=== PATIENT | female | born 2000 | race Caucasian/White ===

== ENCOUNTER 2021-09-14 00:25 | Emergency (ER) | payer BC, SELFPAY ==
[2021-09-14 00:49] VITALS: BP 128/86; PULSE 78; RESP 18; TEMP 36.9; O2SAT 100
[2021-09-14 01:42] LABS: Basophils Absolute Auto 0.1 K/mm3 (0.0-0.1); Basophils Percent Auto 0.6 % (0.2-1.2); Eosinophils Absolute Auto 0.2 K/mm3 (0-0.3); Eosinophils Percent Auto 1.2 % (0-4.4); Hematocrit 37.1 % (37.0-47.0); Hemoglobin 12.5 g/dL (12.0-15.0); Immature Granulocyte Absolute 0.11 K/mm3 (0.00-0.031); Immature Granulocyte Percent A 0.7 % (0-0.5); Lymphocytes Absolute Auto 2.24 K/mm3 (0.9-3.2); Lymphocytes Percent Auto 13.9 % (18.3-44.2); Mean Corpuscular HGB Conc 33.7 g/dl (32-36); Mean Corpuscular Hemoglobin 33.2 pg (26-34); Mean Corpuscular Volume 98.4 fl (80-100); Mean Platelet Volume 9.4 fl (7.4-10.4); Monocytes Absolute Auto 0.9 K/mm3 (0.1-0.6); Monocytes Percent Auto 5.8 % (2.6-8.5); Neutrophils Absolute Auto 12.5 K/mm3 (1.3-6.7); Neutrophils Percent Auto 77.8 % (45.5-73.1); Platelet Count Result 277 k/mm3 (150-375); Red Blood Count 3.77 M/mm3 (4.2-5.4); Red Cell Distribution Width 11.9 % (11.5-14.5); White Blood Count 16.1 K/mm3 (4.5-10.0)
--- NOTE | 2021-09-14 01:42 | ED.PREGNANCY ---
HPI - General Chief complaint: Vaginal Bleeding <Fidel Barth MD - Last Filed: 09/14/21 04:09> Stated complaint: abd pain , pelvic pain, vag bleeding, <Fidel Barth MD - Last Filed: 09/14/21 04:09> Time Seen by Provider: 09/14/21 01:27 <Fidel Barth MD - Last Filed: 09/14/21 04:09> History of Present Illness HPI Narrative: Patient is a 20-year-old female , at 8 weeks age of gestation, complaining of vaginal bleeding, described as spotting accompanied by mild pelvic cramping started 4 hours prior to arrival. <Fidel Barth MD - Last Filed: 09/14/21 04:09> Related Data Allergies/Adverse reactions: Allergies Allergy/AdvReac Type Severity Reaction Status Date / Time Sulfa (Sulfonamide Allergy Unknown / Verified 09/14/21 02:03 Antibiotics) <Fidel Barth MD - Last Filed: 09/14/21 04:09> Review of Systems Review of Systems: All systems reviewed & are unremarkable except as noted in HPI and below <Fidel Barth MD - Last Filed: 09/14/21 04:09> Constitutional: Constitutional: Denies body ache(s), Denies chills, Denies excessive sweating, Denies fatigue, Denies fever(s), Denies headache(s), Denies lethargy, Denies malaise, Denies weakness and Denies weight loss <Fidel Barth MD - Last Filed: 09/14/21 04:09> Eyes: Eyes: Denies blurry vision, Denies change in vision and Denies loss of vision <Fidel Barth MD - Last Filed: 09/14/21 04:09> ENT: Denies dizziness, Denies ear discharge, Denies headache(s), Denies lip swelling, Denies epistaxis, Denies nasal congestion, Denies neck pain, Denies throat swelling and Denies tongue swelling <Fidel Barth MD - Last Filed: 09/14/21 04:09> Cardiovascular: Cardiovascular: Denies chest pain, Denies chest pain at rest, Denies chest pain with activity, Denies diaphoresis, Denies rapid heart rate, Denies edema, Denies irregular heart rhythm, Denies lightheadedness, Denies palpitations, Denies dyspnea and Denies dyspnea on exertion <Fidel Barth MD - Last Filed: 09/14/21 04:09> Respiratory: Respiratory: Denies chest congestion, Denies cough, Denies hemoptysis, Denies dyspnea and Denies dyspnea on exertion <Fidel Barth MD - Last Filed: 09/14/21 04:09> Gastrointestinal: Gastrointestinal: Denies abdominal pain, Denies melena, Denies hematochezia, Denies diarrhea, Denies nausea, Denies vomiting and Denies hematemesis <Fidel Barth MD - Last Filed: 09/14/21 04:09> Musculoskeletal: Musculoskeletal: Denies abnormal gait, Denies deformity, Denies joint swelling, Denies limited range of motion, Denies neck pain and Denies numbness <Fidel Barth MD - Last Filed: 09/14/21 04:09> Neurologic: Denies Abnormal speech present, Denies abnormal gait, Denies confusion, Denies dizziness, Denies headache(s), Denies focal weakness, Denies loss of vision, Denies numbness, Denies Other visual disturbances, Denies Sensory deficit (Neuro) and Denies weakness <Fidel Barth MD - Last Filed: 09/14/21 04:09> Psychiatric: Psychiatric: Denies confusion, Denies depression, Denies auditory hallucinations, Denies homicidal ideation and Denies suicidal ideation <Fidel Barth MD - Last Filed: 09/14/21 04:09> Endocrine: Endocrine: Denies cold intolerance, Denies excessive sweating, Denies fatigue, Denies heat intolerance and Denies palpitations <Fidel Barth MD - Last Filed: 09/14/21 04:09> Hematologic/Lymphatic: Hematologic/Lymphatic: Denies easy bleeding and Denies easy bruising <Fidel Barth MD - Last Filed: 09/14/21 04:09> Allergic/Immunologic: Allergic/Immunologic: Denies lip swelling, Denies throat swelling and Denies tongue swelling <Fidel Barth MD - Last Filed: 09/14/21 04:09> [facility] Family History Family History: Family History Grandparent Family history of cardiovascular disease <Fidel Garland
[2021-09-14 01:46] LABS: Alanine Aminotransferase 9 U/L (6-35); Albumin Level 4.8 g/dL (3.5-5.1); Alkaline Phosphatase 45 U/L (38-126); Anion Gap 9 mmol/L (8-16); Aspartate Amino Transferase 24 U/L (14-36); Bilirubin,Total 0.2 mg/dL (0.2-1.3); Blood Urea Nitrogen 9 mg/dL (7-17); Carbon Dioxide 22 mmol/L (22-30); Chloride 102 mmol/L (98-107); Estimated CRCL calculation 78 ml/min; Estimated Glomerular Filt Rate > 60; Glucose 95 mg/dL (65-110); Potassium 3.4 mmol/L (3.4-5.0); Sodium 133 mmol/L (137-145)
[2021-09-14] MEDS: SODIUM CHLORIDE 0.9% IV 1,000 ML 999 ML IV CONT (02:07)
[2021-09-14] MEDS: ACETAMINOPHEN 325 MG TABLET 650 MG PO (03:11)
[2021-09-14 03:15] VITALS: BP 113/64; PULSE 63; RESP 18; O2SAT 100
[2021-09-14 04:13] LABS: Appearance Urine Clear (Clear); Bilirubin Urine Negative (Negative); Blood Urine 3+ (Negative); Color Urine Yellow (Yellow); Glucose Urine UA Negative (Negative); Ketones Urine 4+ mg/dL (Negative); Leukocyte Esterase Ur Negative LEU/UL (Negative); Nitrate Urine Negative (Negative); Protein Urine Negative (Negative); Urobilinogen Urine 0.2 mg/dL (<2.0); pH Urine 6.5 (5.0-9.0)
[2021-09-14 04:24] LABS: RBC Urine 0-2 /hpf (0-2); Squamous Epithelial Cell Urine Rare /hpf (Few); WBC Urine 0-3 /hpf
[2021-09-14 04:33] VITALS: BP 115/67; PULSE 68; RESP 18; O2SAT 98
[2021-09-14 04:55] LABS: Add Urine Microscopic? YES
== END 2021-09-14 04:33 | disposition home or self-care (01) ==
PROVIDERS: Emergency Provider Emergency Medicine; PCP Family Medicine
DX: O20.0 Threatened abortion (principal); Z3A.08 8 weeks gestation of pregnancy
CPT/HCPCS: 36415; 80053; 81001; 84702; 85025; 85461; 96360; 99284; A9270; J7030

== ENCOUNTER 2021-09-15 16:34 | Emergency (ER) | payer BC, SELFPAY ==
--- NOTE | ~2021-09-15 | US_ITS ---
EXAMINATION: US OB <=14 wk fetus w TV DATE: 09/15/2021 18:30 INDICATION: Early . Bleeding and cramping. TECHNIQUE: Real-time transabdominal and transvaginal obstetric ultrasound. FINDINGS: No prior studies for comparison. The uterus measures 10.1 x 5.1 x 6.2 cm. There is an intrauterine gestational sac, with pole id entified. The crown rump length measures 0.91 cm, which correlates with a estimated gestational age of 6 weeks 6 days. heart tones are identified measuring 126 BPM. Small amount of free fluid i n the pelvis. There are small follicles in the right ovary. IMPRESSION: 1. SL IUP with an EGA of 6 weeks, 6 days (EDC by current ultrasound of 05/05/2022). Reviewed, dictated and finalized at location A. IMPRESSION: 1. SL IUP with an EGA of 6 weeks, 6 days (EDC by current ultrasound of ).
[2021-09-15 16:35] VITALS: BP 121/70; PULSE 98; RESP 18; TEMP 36.4; O2SAT 100
--- NOTE | 2021-09-15 17:18 | ED.PREGNANCY ---
HPI - General Chief complaint: Vaginal Bleeding Stated complaint: UTI, Lower ABD Cramps, 7 weeks Preg Time Seen by Provider: 09/15/21 17:10 Source: patient Mode of arrival: ambulatory Limitations: no limitations History of Present Illness HPI Narrative: This is a 20-year-old , about 7 weeks that presents to the emergency department for vaginal bleeding. She was evaluated by her OB yesterday and in the ER here for same. She was told she had a subchorionic hemorrhage. Reports she was told by her OB office if the bleeding became more bright red she should come in to be seen again, which prompted her to be reevaluated today. Associated with some pelvic cramping. Also reports she has had some dysuria. Denies fever or vomiting. Related Data Allergies Allergy/AdvReac Type Severity Reaction Status Date / Time Sulfa (Sulfonamide Allergy Unknown / Verified 09/14/21 02:03 Antibiotics) Review of Systems Review of Systems: CONSTITUTIONAL: Denies fever GASTROINTESTINAL: Reports abdominal pain. Denies nausea, vomiting GENITOURINARY: Reports dysuria. Denies hematuria. All systems reviewed & are unremarkable except as noted in HPI and below PMFSH Past Medical History Medical History (Updated 09/15/21 @ 19:31 by Hiwot Francisco PA-C) No active medical problems Family History Family History Grandparent Family history of cardiovascular disease Social History Social History (Updated 09/15/21 @ 17:21 by Hiwot Francisco PA-C) Smoking status: Current every day smoker Tobacco type: e-cigarettes/vaping Exam Narrative: GENERAL: Well-appearing, well-nourished, and in no acute distress. HEAD: Normocephalic, atraumatic. EYES: EOMI. CHEST: Clear to auscultation. No respiratory distress. No wheezes rales or rhonchi HEART: Regular rate and rhythm. No murmur heard. Normal peripheral pulses. ABDOMEN: Soft, nontender, nondistended, normal active bowel sounds. EXTREMITIES: Normal range of motion. No edema. SKIN: Warm, dry, no rash. NEURO: No focal deficits. Alert and oriented x3. PSYCH: Normal mood and affect PELVIC: Normal-appearing cervix, closed. Small amount of bright red blood in the vaginal vault Course Consultations Consultation #1: Spoke with Dr. James about patient and workup who will follow up in clinic Date: 09/15/21 Vital Signs Vital signs: Vital Signs Temperature 97.6 F 09/15/21 16:35 Pulse Rate 98 09/15/21 16:35 Respiratory Rate 18 09/15/21 16:35 Blood Pressure 121/70 09/15/21 16:35 Pulse Oximetry 100 09/15/21 16:35 Oxygen Delivery Room Air 09/15/21 16:35 Temperature 97.6 F 09/15/21 16:35 Pulse Rate 98 09/15/21 16:35 Respiratory Rate 18 09/15/21 16:35 Blood Pressure 121/70 09/15/21 16:35 Pulse Oximetry 100 09/15/21 16:35 Oxygen Delivery Room Air 09/15/21 16:35 MDM - OB/Uterine Contractions MDM Narrative Medical decision making narrative: Patient presents to the ER for vaginal bleeding, 7 weeks . Was evaluated last night, but returned as her bleeding had worsened. She is afebrile and nontoxic appearing. CBC with mild leukocytosis. Hemoglobin is normal. Metabolic panel without concerning findings. UA does show some WBCs. This will go for a culture. Patient is experiencing some urinary discomfort so will be started on Macrobid. Patient is A+. US shows SL IUP. No concerning amount of bleeding noted on exam. Spoke with Dr. James about patient and workup who will follow up in clinic. Patient is stable and felt appropriate for further outpatient evaluation. She was given warnings to return to the ER Lab Data Attestation: I reviewed the patient's lab results. Result diagrams: 09/15/21 17:25 Labs: Lab Results 09/15/21 09/15/21 09/15/21 Range/Units 17:25 17:25 17:25 WBC 12.6 H (4.5-10.0) K/mm3 RBC 3.62 L (4.2-5.4) M/mm3 Hgb 12.0 (12.0-15.0)
[2021-09-15] MEDS: SODIUM CHLORIDE 0.9% IV 1,000 ML 999 ML IV CONT (17:24)
[2021-09-15 17:32] LABS: Basophils Absolute Auto 0.1 K/mm3 (0.0-0.1); Basophils Percent Auto 0.5 % (0.2-1.2); Eosinophils Absolute Auto 0.1 K/mm3 (0-0.3); Eosinophils Percent Auto 0.7 % (0-4.4); Hematocrit 35.6 % (37.0-47.0); Immature Granulocyte Absolute 0.08 K/mm3 (0.00-0.031); Immature Granulocyte Percent A 0.6 % (0-0.5); Lymphocytes Absolute Auto 1.81 K/mm3 (0.9-3.2); Lymphocytes Percent Auto 14.4 % (18.3-44.2); Mean Corpuscular HGB Conc 33.7 g/dl (32-36); Mean Corpuscular Hemoglobin 33.1 pg (26-34); Mean Corpuscular Volume 98.3 fl (80-100); Mean Platelet Volume 9.6 fl (7.4-10.4); Monocytes Absolute Auto 0.8 K/mm3 (0.1-0.6); Monocytes Percent Auto 6.1 % (2.6-8.5); Neutrophils Absolute Auto 9.7 K/mm3 (1.3-6.7); Neutrophils Percent Auto 77.7 % (45.5-73.1); Platelet Count Result 275 k/mm3 (150-375); Red Blood Count 3.62 M/mm3 (4.2-5.4); Red Cell Distribution Width 11.9 % (11.5-14.5); White Blood Count 12.6 K/mm3 (4.5-10.0)
[2021-09-15 17:59] LABS: Appearance Urine Cloudy (Clear); Color Urine Red (Yellow)
[2021-09-15 18:01] LABS: Glucose Urine UA Negative (Negative); Protein Urine 2+ mg/dL (Negative); Specific Grav Ur 1.025 (1.001-1.035); pH Urine 5.5 (5.0-9.0)
[2021-09-15 18:02] LABS: Blood Urine 4+ (Negative); Ketones Urine 2+ mg/dL (Negative)
[2021-09-15 18:03] LABS: Add Urine Microscopic? YES; Bilirubin Urine 2+ (Negative); Leukocyte Esterase Ur Negative LEU/UL (Negative); Nitrate Urine Negative (Negative)
[2021-09-15 18:05] LABS: Bacteria Urine Trace /hpf; Mucus Urine Few /lpf; Squamous Epithelial Cell Urine Many /hpf (Few); WBC Clumps Urine Present /HPF
[2021-09-15 19:27] VITALS: BP 127/78; PULSE 78; RESP 18; O2SAT 99
== END 2021-09-15 19:42 | disposition home or self-care (01) ==
PROVIDERS: Physician Assistant; Emergency Provider Emergency Medicine; PCP Family Medicine
DX: O46.91 Antepartum hemorrhage, unspecified, first trimester (principal); Z3A.01 Less than 8 weeks gestation of pregnancy
CPT/HCPCS: 36415; 76801; 76817; 81001; 84702; 85025; 85461; 87086; 87088; 96360; 99284; J7030

== ENCOUNTER 2022-04-25 01:21 | Inpatient (IN) | payer BC, MEDICAID, SELFPAY ==
[2022-04-25] VITALS (140 sets, daily range): BP systolic 102–148; BP diastolic 41–124; PULSE 71–128; RESP 16–18; TEMP 36.4–37.1; O2SAT 92–100; BMI 26.9
--- NOTE | 2022-04-25 05:29 | LDADM ---
This patient, Dunia Shelby, was admitted to Labor/Delivery/Recovery 105 on 04/25/22 at 01:21. Plans for labor, pain management and were discussed with patient. Patient/family oriented to hospital policies and general routines including ID bracelet, bed and alarms, visiting hours, pain management, procedures, bathroom and other care routines, personal items, smoking policy, room service/diet and guest tray routines, security routines, and visiting hours. Patient/Family are encouraged to report perceived risks to care and to ask questions if they do not understand what they are told or what they should do. See OBIX for further documentation.
[2022-04-25 05:44] LABS: Basophils Percent Auto 0.3 % (0.2-1.2); Eosinophils Absolute Auto 0.1 K/mm3 (0-0.3); Hemoglobin 11.2 g/dL (12.0-15.0); Immature Granulocyte Percent A 0.8 % (0-0.5); Lymphocytes Absolute Auto 2.31 K/mm3 (0.9-3.2); Lymphocytes Percent Auto 18.5 % (18.3-44.2); Mean Corpuscular HGB Conc 32.9 g/dl (32-36); Mean Corpuscular Hemoglobin 32.8 pg (26-34); Mean Corpuscular Volume 99.7 fl (80-100); Mean Platelet Volume 10.9 fl (7.4-10.4); Monocytes Absolute Auto 1.1 K/mm3 (0.1-0.6); Monocytes Percent Auto 8.4 % (2.6-8.5); Neutrophils Absolute Auto 8.9 K/mm3 (1.3-6.7); Platelet Count Result 233 k/mm3 (150-375); Red Blood Count 3.41 M/mm3 (4.2-5.4); Red Cell Distribution Width 14.2 % (11.5-14.5); White Blood Count 12.5 K/mm3 (4.5-10.0)
--- NOTE | 2022-04-25 06:00 | WPDANESEPP ---
Anes - Eval Pre Procedure Procedure: Labor epidural Date/Time: 04/25/22 06:00 Surgeon: Erika Preop Diagnosis: Abd pain with contractions Pre Op Diagnosis: Contractions Patient Data Age: 21 Gender: F Height: 1.6 m Weight: 69.1 kg Last Vital Signs Pulse 78 04/25/22 05:31 BP 130/76 04/25/22 05:31 O2 Del Method Room Air 04/25/22 05:25 Allergies Allergy/AdvReac Type Severity Reaction Status Date / Time Sulfa (Sulfonamide Allergy Unknown / Verified 04/25/22 04:39 Antibiotics) Home Medications Medication Instructions Recorded Confirmed Type ferrous sulfate 140 mg (45 mg 140 mg PO BID 04/03/22 04/25/22 History iron) tablet,extended release prenat.vits,estefany,[id number]-wimft 1 tablet PO DAILY 04/03/22 04/25/22 History Laboratory Tests 04/25/22 04/25/22 04:50 04:50 WBC 12.5 K/mm3 H K/mm3 (4.5-10.0) RBC 3.41 M/mm3 L M/mm3 (4.2-5.4) Hgb 11.2 g/dL L g/dL (12.0-15.0) Hct 34.0 % L % (37.0-47.0) MCV 99.7 fl fl (80-100) MCH 32.8 pg pg (26-34) MCHC 32.9 g/dl g/dl (32-36) RDW 14.2 % % (11.5-14.5) Plt Count 233 k/mm3 k/mm3 (150-375) MPV 10.9 fl H fl (7.4-10.4) Immature Gran % (Auto) 0.8 % H % (0-0.5) Neut % (Auto) 71.0 % % (45.5-73.1) Lymph % (Auto) 18.5 % % (18.3-44.2) [place] % (Auto) 8.4 % % (2.6-8.5) Eos % (Auto) 1.0 % % (0-4.4) Baso % (Auto) 0.3 % % (0.2-1.2) Lymph # (Auto) 2.31 K/mm3 K/mm3 (0.9-3.2) [place] # (Auto) 1.1 K/mm3 H K/mm3 (0.1-0.6) Eos # (Auto) 0.1 K/mm3 K/mm3 (0-0.3) Baso # (Auto) 0.0 K/mm3 K/mm3 (0.0-0.1) Abs Immat Gran (auto) 0.10 K/mm3 H K/mm3 (0.00-0.031) Absolute Neuts (auto) 8.9 K/mm3 H K/mm3 (1.3-6.7) Absolute Nucleated RBC 0.0 K/mm3 K/mm3 (0.0-0.012) Nucleated RBC % 0.0 % % (0.0-0.2) RPR Pending Patient hx anesthesia problems: none Family hx anesthesia problems: none Results Review: All pre-operative results and documents have been reviewed as part of the pre-operative evaluation. [facility] Past Medical History Medical History Anxiety and depression No active medical problems Overweight (BMI 25.0-29.9) and not yet delivered Family History Family History Grandparent Family history of cardiovascular disease Social History Social History Smoking status: Former smoker Tobacco type: e-cigarettes/vaping Second hand tobacco smoke exposure: No Substance use: current Last use: Feb 2022 Lack of Transportation: No Lack of Food: Never True Current Housing: I Have Housing Concerned About Future Housing: No Difficulty Paying Gas/Electric Bills: No Difficulty Paying for Meds: No Currently Unemployed: No Education: Associate Degree Difficulty w/ Childcare or Family Care: No Spiritual care concerns: No Exam Day of Procedure 04/25/22 06:00 Patient weight: overweight Airway: Mallampati scale class II
--- NOTE | 2022-04-25 07:44 | WPDOBADMIT ---
Obstetrics - Admit Note Admission Note: record reviewed. No pertinent additions to the history and/or any subsequent changes in the physical findings that are not consistent with the expected course of the were found. pt arrived in labor, uncomfortable with contractions every 2-3 minutes, AROM moderate amount of clear odorless fluid, SVE 3/80/-2, abticipate vaginal delivery Additions to the history and/or subsequent changes in the physical findings follow. None.
[2022-04-25] MEDS: LACTATED RINGERS 1,000 ML 125 ML IV CONT ×3 (08:24→13:12)
[2022-04-25] MEDS: ONDANSETRON INJ 4 MG/2 ML VIAL IV PUSH (14:06)
[2022-04-25 14:32] LABS: Rapid Plasma Reagin Non-Reactive (NonReactive)
--- NOTE | 2022-04-25 17:05 | P.PCNOB_ITS ---
OB - Delivery Note Procedure Delivery date: 04/25/22 Procedure: Delivery augmentation: Rupture of Membranes Delivery monitor: External FHT and Internal Uterine Route of delivery: Laceration Description: Perineal - 2nd Degree Delivery repair: vicryl Specimen: Yes Quantitative Blood Loss (ml): 320 Anesthesia type: Epidural Disposition: Floor Narrative: mom and baby stable, baby to warmer for evaluation [place] Baby Date of : 04/25/22 Time of : 16:45 Weeks of gestation at delivery: 39 gender: Male Weight (pounds): 8 Weight (ounces): 14 presentation: compound position: Right Occiput Anterior (with right arm) Placenta delivery description: Spontaneous Cord Vessel Description: 3 Vessels and Delayed Cord Clamping
--- NOTE | 2022-04-25 17:13 | PM.OBPRVD ---
OB - Delivery Note Procedure Laceration Description: Perineal - 2nd Degree Specimen: No Anesthesia type: Epidural Baby Date of : 04/25/22 Time of : 16:45 Weeks of gestation at delivery: 39 gender: Male Weight (pounds): 8 Weight (ounces): 14 presentation: compound position: Right Occiput Anterior (with right arm) Placenta delivery description: Spontaneous Cord Vessel Description: 3 Vessels and Delayed Cord Clamping
[2022-04-25] MEDS: OXYTOCIN 30 UNITS/NS 500 ML 30 UNITS/500 ML BAG 125 UNITS IV CONT (17:23)
[2022-04-25] MEDS: IBUPROFEN 600 MG TABLET PO (19:33)
--- NOTE | 2022-04-25 20:08 | OBPPTRN ---
Patient transferred to post room #284 via W/C. Support person present. Oriented to unit, room, information board, rooming in, admission packet and security measures. Patient verbalizes understanding.
[2022-04-25] MEDS: ACETAMINOPHEN 325 MG TABLET 650 MG PO (23:25)
[2022-04-26 04:30] VITALS: BP 102/55; PULSE 89; RESP 16; TEMP 36.8
[2022-04-26] MEDS: IBUPROFEN 600 MG TABLET PO ×2 (04:32→16:54)
[2022-04-26 04:46] LABS: Hematocrit 26.6 % (37.0-47.0); Hemoglobin 8.8 g/dL (12.0-15.0)
[2022-04-26 08:10] VITALS: BP 98/53; PULSE 81; RESP 16; TEMP 36.7; O2SAT 100
--- NOTE | 2022-04-26 08:24 | PM.OBPNVD ---
OB - PN: Subj Subjective Date/time seen: 04/26/22 08:24 Patient comments: no complaints baby status: doing well OB - PN: Obj Data Labs 04/26/22 04:37 Labs: Laboratory Results - last 24 hr 04/25/22 04/26/22 04:50 04:37 Hgb 8.8 L Hct 26.6 L RPR Non-reactive OB - PN A/P Plan day: 1 Plan: routine care Time Spent With Patient Time: Total time spent is greater than 50% in coordination of care (as documented) at patient's floor/unit and/or counseling patient: Time with patient: less than 15 minutes Review of Systems Review of Systems: All systems reviewed & are unremarkable except as noted in HPI and below Exam Narrative: Fundus firm and vaginal flow controlled. No lower ext redness, warmth, or edema. Negative homans. Const: General: comfortable Chest: Breast/axilla inspection: normal inspection of the breasts Resp: Effort & Inspection: normal respiratory effort Cardio: Rate: regular rate GI: GI Palp: Yes Soft to palpation Psych: Appearance: grossly normal Affect: normal affect Attitude: cooperative Thought content: Yes Normal thought content present Judgement: Good judgement present (Psych)
[2022-04-26] MEDS: ACETAMINOPHEN 325 MG TABLET 650 MG PO (09:07)
[2022-04-26] MEDS: DOCUSATE SODIUM 100 MG CAPSULE PO ×2 (09:07→16:54)
[2022-04-26] MEDS: MULTIVIT/MIN/PREN/FOL AC/IRON TABLET 1 TAB PO (09:08)
[2022-04-26] MEDS: POLYSACCHARIDE IRON COMPLEX 150 MG CAPSULE PO ×2 (09:19→16:54)
--- NOTE | 2022-04-26 10:00 | WPDANLDPN2 ---
Anes-Prog Note L&D Date/Time: 04/26/22 10:00 Comfortable throughout: labor and delivery Neuraxial method: epidural Epidural/Spinal procedure site: clean & non-tender Neuro status: Neuro function grossly intact. Cardiovascular status: normal Respiratory status: normal Airway patency: baseline Mental status: baseline Post-Op hydration status: normal Vital Signs: Last Vital Signs Temp 36.7 C 04/26/22 08:10 Pulse 81 04/26/22 08:10 Resp 16 04/26/22 08:10 BP 98/53 L 04/26/22 08:10 Pulse Ox 100 04/26/22 08:10 O2 Del Method Room Air 04/25/22 20:15 Pain score (VAS): 3/10 Post-procedural complaints: none Patient feedback: Patient satisfied with anesthetic care.
--- NOTE | 2022-04-26 10:51 | PC.NURSE ---
[id number] Introductions were made, then consulted with patient to assess needs clarifying her plan since she breastfed after delivery, then bottle fed (low blood sugar) Mother led the conversation with her?plans to feed?her by pumping and bottle breastmilk/ supplementing with formula as needed and confirmed she would not be putting her infant to breast. Breast pump will be provided at 1130 as Primary RN has made a plan to initiate with patient at that time due to mother's plan. Instructions given on cleaning, care, usage, that there should be no pain, pumping schedule for milk production, collection, and storage of human milk. Parents are encouraged to record pumping schedule on the feeding sheet and milk production reviewed for a good supply by pumping every 3 hours (8-12 times in 24 hours) 1-2 times at night. Resources provided for inpatient and outpatient services using mom/baby guide. Parents voiced understanding of information. Reported to the primary RN.
[2022-04-26 11:48] VITALS: BP 115/68; PULSE 95; RESP 16; TEMP 37.3; O2SAT 98
[2022-04-26 17:00] VITALS: BP 122/75; PULSE 97; RESP 18; TEMP 36.9
[2022-04-26 20:30] VITALS: BP 119/79; PULSE 88; RESP 18; TEMP 37.2; O2SAT 97
[2022-04-27] MEDS: ACETAMINOPHEN 325 MG TABLET 650 MG PO (04:10)
--- NOTE | 2022-04-27 07:32 | PM.OBPNVD ---
OB - PN: Subj Subjective Date/time seen: 04/27/22 07:32 s/p vaginal delivery day 2 OB - PN: Obj Data Labs 04/26/22 04:37 OB - PN A/P Plan day: 2 Plan: routine care and discharge home Time Spent With Patient Time: Total time spent is greater than 50% in coordination of care (as documented) at patient's floor/unit and/or counseling patient: Review of Systems Review of Systems: All systems reviewed & are unremarkable except as noted in HPI and below Exam Const: General: cooperative, healthy appearing and comfortable
--- NOTE | 2022-04-27 07:34 | P.DS_ITS ---
DS: Admitting Diagnosis Discharge Date 04/27/22 Admitting Diagnosis labor DS: Discharge Diagnosis Discharge Diagnosis (1) Vaginal delivery: Code(s): O80 - Encounter for full-term uncomplicated delivery Status: Acute OB - DS: Summary OB Procedures : None OB Procedures Intrapartum: Spontaneous Vag Delivery OB Procedures: : None Time Spent with Patient Time attestation: Total time spent providing and/or coordinating discharge services: Discharge Plan Discharge Attending physician on discharge: Yary James Discharging Clinician: Radha Logan Patient Disposition: Home, Self-Care Activity: pelvic rest Diet: regular Patient Instructions: Antibiotic Form Stand Alone Forms: General Discharge Information Follow-up/Referrals: Radha Logan CNM [Certified Nurse Corporate Director Of Human Resources] - 4 Weeks Discharge Medications: New ibuprofen 600 mg Tablet 600 mg PO Q6H PRN (Reason: Cramping) Qty: 30 0RF Continued #2 Tablet 1 tablet PO DAILY ferrous sulfate 140 mg (45 mg iron) Tablet Extended Release 140 mg PO BID Date of admission: 04/25/22 01:21 Primary Care Provider: Jm Agrawal Admitting Provider: Yary James Attending physician on admission: Yary James Condition: Stable
[2022-04-27] MEDS: DOCUSATE SODIUM 100 MG CAPSULE PO (08:22)
[2022-04-27] MEDS: MULTIVIT/MIN/PREN/FOL AC/IRON TABLET 1 TAB PO (08:22)
[2022-04-27] MEDS: POLYSACCHARIDE IRON COMPLEX 150 MG CAPSULE PO (08:22)
[2022-04-27 08:45] VITALS: BP 121/73; PULSE 98; RESP 16; TEMP 37.4; O2SAT 100
--- NOTE | 2022-04-27 10:25 | PC.NURSE ---
Patient viewed the discharge video Mother & Baby Care, The First Two Weeks . Patient was given the opportunity and encouraged to ask questions. Patient verbalized understanding of information shared and has been given the mother/baby guide for home reference.
[2022-04-27] MEDS: LANOLIN (LANSINOH) 7.5 GM CREAM 1 APPLIC TOPICAL (11:00)
[2022-04-28 09:34] VITALS: BP 129/75; PULSE 102; RESP 20; TEMP 36.8; O2SAT 100
== END 2022-04-27 13:15 | disposition home or self-care (01) | DRG 807 ==
LOC: ANHLDR 05:41 → ANHOB2 20:21
PROVIDERS: Admitting Provider Obstetrics & Gynecology; PCP Family Medicine; Referring Provider Advanced Practice Midwife; Visit Provider Obstetrics & Gynecology
DX: O70.1 Second degree perineal laceration during delivery (principal); Z37.0 Single live birth; Z3A.39 39 weeks gestation of pregnancy
CPT/HCPCS: 36415; 85014; 85018; 85025; 86592; 86850; 86900; 86901; A9270; J2405; J2590; J2795; J7120

== ENCOUNTER 2024-05-03 17:34 | Emergency (ER) | payer BC, MEDICAID, SELFPAY ==
[2024-05-03 17:46] VITALS: BP 109/61; PULSE 89; RESP 16; TEMP 36.5; O2SAT 99
--- NOTE | 2024-05-03 17:46 | ED.GENADULT ---
HPI - General Adult General Chief complaint: Urogenital-Female Stated complaint: uti symptoms Time Seen by Provider: 05/03/24 17:46 Source: patient Mode of arrival: ambulatory Limitations: no limitations History of Present Illness HPI narrative: 23-year-old female patient presents to the [facility] with complaints of urinary symptoms that started at 1:00 a.m. this morning. Patient states she has had some low back pain and lower abdominal pain that started about 3 days ago. Denies fevers, body aches or chills. Patient states she has had pain with urination and an odor. Patient states she is on control but always concerned about possible . Patient is sexually active last menstrual cycle was about a week ago. Related Data Home Medications ?Medication ?Instructions ?Recorded ?Confirmed ?Last Taken ?Type ferrous sulfate 140 mg (45 mg 140 mg PO BID 04/03/22 04/25/22 04/24/22 15:00 History iron) tablet,extended release Allergies Allergy/AdvReac Type Severity Reaction Status Date / Time Sulfa (Sulfonamide Allergy Mild Rash Verified 05/03/24 17:44 Antibiotics) Review of Systems Review of Systems: CONSTITUTIONAL: Denies fever, chills, or sweats. EYES: Denies visual changes, redness, or discharge. ENT: Denies rhinorrhea, congestion, sore throat, or otalgia. CARDIOVASCULAR: Denies chest pain, palpitations, or edema. RESPIRATORY: Denies cough or dyspnea. GASTROINTESTINAL: Denies abdominal pain, nausea, vomiting, or diarrhea. GENITOURINARY: Denies dysuria or hematuria. SKIN: Denies rash or itching. MUSCULOSKELETAL: Denies back pain, joint pain, or myalgia. NEUROLOGIC: Denies headache, numbness, or weakness. PSYCHIATRIC: Denies anxiety or depression. FORMERLY [facility] Past Medical History Medical History Overweight (BMI 25.0-29.9) Anxiety and depression and not yet delivered No active medical problems Family History Family History Grandparent Family history of cardiovascular disease Social History Social History Smoking status: Former smoker Tobacco type: e-cigarettes/vaping Second hand tobacco smoke exposure: No Substance use: current Last use: Feb 2022 Lack of Transportation: No Lack of Food: Never True Current Housing: I Have Housing Concerned About Future Housing: No Difficulty Paying Gas/Electric Bills: No Difficulty Paying for Meds: No Currently Unemployed: No Education: Associate Degree Difficulty w/ Childcare or Family Care: No Spiritual care concerns: No Comments at the time of my signature I agree with nursing past medical history, surgical, social, and family history. There is no relevant family history pertinent to the presenting complaint. Exam Narrative: GENERAL: Well-appearing, well-nourished, and in no acute distress. HEAD: Normocephalic, atraumatic. EYES: PERRLA and EOMI. ENT: Nares clear, no rhinorrhea or epistaxis. Mucous membranes moist. NECK: Supple. No lymphadenopathy CHEST: Clear to auscultation. No respiratory distress. HEART: Regular rate and rhythm. No murmur heard. Normal peripheral pulses. ABDOMEN: Soft, nontender, nondistended, normal active bowel sounds. Slight CVA tenderness to the left side. EXTREMITIES: Normal range of motion. No edema. SKIN: Warm, dry, no rash. NEURO: No focal deficits. Alert and oriented x3. Course Course Level of Care: Express Care Visit Reevaluation(s) Date: 05/03/24 Vital Signs Vital signs: Vital Signs Temperature 36.5 C 05/03/24 17:46 Pulse Rate 89 05/03/24 17:46 Respiratory Rate 16 05/03/24 17:46 Blood Pressure 109/61 05/03/24 17:46 Pulse Oximetry 99 05/03/24 17:46 Oxygen Delivery Room Air 05/03/24 17:46 Temperature 36.5 C 05/03/24 17:46 Pulse Rate 89 05/03/24 17:46 Respiratory Rate 16 05/03/24 17:46 Blood Pressure 109/61 05/03/24 17:46 Pulse Oximetry 99 05/03/24 17:46 Oxygen Delivery Room Air 05/03/24 17:46 vital signs reviewed. Medical Decision Making MDM Narrative Medical decision making narrative: notify patient that since she did take azo today the urine dip is really not showing anything however we will send the urine to the lab for culture we will go ahead and start her on antibiotics today since she is symptomatic. Patient's test was negative. Patient verbalized understanding denies any other questions or concerns at this time. Differential Diagnosis Differential Diagnosis: Differential diagnosis: Uncomplicated lower UTI, uncomplicated UTI, pyelonephritis Vital Signs Vital Signs: Vital Signs Temperature 36.5 C 05/03/24 17:46 Pulse Rate 89 05/03/24 17:46 Respiratory Rate 16 05/03/24 17:46 Blood Pressure 109/61 05/03/24 17:46 Pulse Oximetry 99 05/03/24 17:46 Oxygen Delivery Room Air 05/03/24 17:46 Temperature 36.5 C 05/03/24 17:46 Pulse Rate 89 05/03/24 17:46 Respiratory Rate 16 05/03/24 17:46 Blood Pressure 109/61 05/03/24 17:46 Pulse Oximetry 99 05/03/24 17:46 Oxygen Delivery Room Air 05/03/24 17:46 Lab Data Labs: Lab Results 05/03/24 Range/Units 17:58 POC Urine Color Red POC Urine Clarity Cloudy POC Urine pH 5.0 POC Ur Specif [place] 1.015 POC Urine Protein 3+ (Negative) POC Ur Glucose (UA) 1+ (Negative) POC Urine Ketones 1+ (Negative) POC Urine Blood 3+ (Negative) POC Urine Nitrite Positive (Negative) POC Urine Bilirubin 1+ (Negative) POC Urine Urobilinogen 4.0 POC U Leukocyte Esteras 3+ (Negative) Critical Care Time Critical Care Time Critical Care Time: No Discharge Plan Discharge Clinical Impression: Dysuria Patient Disposition: Home, Self-Care Condition: Stable Instructions: Antibiotic Form, Urinary Tract Infection in Women (ED) Additional Instructions: We will send a urine culture off to the lab; if the culture identifies an organism that the prescribed antibiotic will not treat, you will receive a phone call from an urgent care staff member and an appropriate antibiotic will be prescribed. -Your symptoms should begin to improve within a day of starting antibiotics. But you should finish all the antibiotic pills you get. Otherwise your infection might come back. -Also recommend: drink more fluid. It might help flush out germs, and it does no harm -Tylenol/ibuprofen prn for pain or fever -Follow-up with your primary care provider for urine recheck or seek ER visit if condition worsens with high fever, nausea, vomiting and severe back pain. Patient Language: Georgian Prescriptions: New nitrofurantoin monohyd/m-cryst [Macrobid] 100 mg capsule 100 mg PO Q12H 5 Days Qty: 10 0RF Rx Instructions: must administer with a meal/food No Action ferrous sulfate 140 mg (45 mg iron) Tablet Extended Release 140 mg PO BID ibuprofen 600 mg Tablet 600 mg PO Q6H PRN (Reason: Cramping) Qty: 30 0RF Follow-up/Referrals: Jm Agrawal MD [Primary Care Provider] - Time of Disposition: 18:16
[2024-05-03 18:04] LABS: EDUAAPPEAR Cloudy; EDUABILI 1+ (Negative); EDUABLOOD 3+ (Negative); EDUACOLOR1 Red; EDUAGLUCOSE 1+ (Negative); EDUAKETONE 1+ (Negative); EDUALEUKO 3+ (Negative); EDUANITRATE Positive (Negative); EDUAPROTEIN 3+ (Negative); EDUASPGRAVITY 1.015
[2024-05-03 18:23] LABS: BEDSIDEPREGUCG Negative (Negative)
== END 2024-05-03 18:17 | disposition home or self-care (01) ==
PROVIDERS: Emergency Provider Nurse Practitioner Family; PCP Family Medicine
DX: R30.0 Dysuria (principal); Z87.891 Personal history of nicotine dependence
CPT/HCPCS: 81003; 81025; 87086; 87186; 99213; G0463

== ENCOUNTER 2024-08-07 09:52 | Outpatient (NON) | payer BC, MEDICAID, SELFPAY ==
--- OUTSIDE RECORDS SUMMARY | 2024-08-07 10:00 | XMS_ITS | Clinical Summary ---
Author Organization [facility] Address [address] [place] [id number] Care Team Providers Care Barrel Liner Name Role Phone Jm Agrawal MD Primary Care Provider [phone] Social History Tobacco Use Types Packs/Day Years Used Date Smoking Tobacco: Never Assessed Comments Unknown Sex and Gender Information Value Date Recorded Sex Assigned at Not on file Legal Sex Female 12:11 PM CDT Gender Identity Not on file Sexual Orientation Not on file Plan of Treatment Health Maintenance Due Date Last Done Comments Annual Physical 2001 HPV Vaccines (1 - 3-dose series) 2013 Hepatitis C 2016 DTaP, Tdap and Td Vaccines ( 1 - Tdap) 2017 Hepatitis B Vaccines (1 of 3 - 19+ 3-dose series) 2017 Cervical Cancer Screening Pa p Smear (Age 21 to 29) Every 3 Years 08/12/2023 08/11/2020, 08/11/2020, 08/11/2020 Cervical Cancer Screening 08/12/2023 COVID-19 Vaccine (3 - 2023-2 5 season) 2023 10/06/2020, 09/08/2020 Meningococcal B Vaccine Aged Out No l onger eligible based on patient's age to complete this topic Meningococcal Vaccine Aged Out No addison mirlande eligible based on patient's age to complete this topic Pneumococcal Vaccine: Pediatrics (0 to 5 Years) and At-Risk Patients (6 to 49 Years) Aged Out No longer eligible b ased on patient's age to complete this topic RSV Immunizations Under 20 Months Aged Out No longer eligible b ased on patient's age to [place] [id number] Care Teams Barrel Liner Relationship Specialty Start Date End Date Jm Agrawal MD PCP - General FAMILY PRACTICE 01/30/21
--- OUTSIDE RECORDS SUMMARY | 2024-08-07 10:00 | XMS_ITS | Clinical Summary ---
Author Organization [facility] Care Team Providers Care Cryogenic Transport Driver Name Role Phone Unavailable Primary Care Provider Unavailabl e Social History Tobacco Use Types Packs/Day Years Used Date Smoking Tobacco: Never Assessed Comments Unknown Sex and Gender Information Value Date Recorded Sex Assigned at Not on file Legal Sex Female 3:07 PM CLOSING COORDINATOR Gender Identity Not on file Sexual Orientation Not on file Plan of Treatment Health Maintenance Due Date Last Done Comments Hepatitis C Virus (HCV) Screening 1998 TdaP Immunization 1998 Human Papillomavirus (HPV) Immunization (1 - 3-dose series) 2013 Hepatitis B Immunization (1 of 3 - 19+ 3-dose series) 2017 Pap Smear 12/15/2019 Influenza Immunization (#1) 2023 03/03/2020 SARS-COV-2 Immunization ( - 2023- season) 2023 10/06/2020, 09/08/2020 Respiratory Syncytial Virus (RSV) Immunization (Adult) (1 - 1-dose 75+ series) 2073 Meningococcal Immunization (ACWY) Aged Out No longer eligible b ased on patient's age to complete this topic Pneumococcal Immunization Combined Aged Out No longer eligible b ased on patient's age to complete this topic Rotavirus Immunization Aged Out No lo nger eligible based on patient's age to complete this topic
--- OUTSIDE RECORDS SUMMARY | 2024-08-07 10:00 | XMS_ITS | Clinical Summary ---
Author Organization [facility] Address [address] [place] [address] Care Team Providers Care Counter Pocket Trimmer Name Role Phone Unavailable Primary Care Provider Unavailabl e Source Comments [facility],non-owned Affiliates and Associated Physician Practices is amultiple site organization consisting of ambulatory clinics and hospital sitesin [place], [place], [place] and [place]. This disclosure is being madepursuant to the Care Everywhere program and may not contain all information available regarding this patient. Last updated 18.[facility] Allergies Active Allergy Reactions Criticality Noted Date Comments Sulfa Drugs Unknown 01/02/2022 Resolved Problems Problem Noted Date Diagnosed Date Resolved Date RETIREMENT- abnormality in pre gnancy- club foot 01/22/2022 05/10/2022 Overview (01/22/2022): Images from the original note were not included. RETIREMENT PATIENT--PLEASE CALL [phone] (ex 2) IF TRIAGED OR ADMITTED Care Provider: Referred by Dr. [facility] [place] consultants involved: Romero- Nurse Navigator Diagnosis: Suspect club feet Planned surveillance: Not evaluated in RETIREMENT; Club foot consultation to be done virtually by Orthopedics. Delivery location: Delivery mode: Desired Delivery [place]: follow up: Campground Manager: Autopsy indicated: Genetics note: Fiber Design Engineer Concerns: Care plan based on evaluation and is subject to change based on assessment. See Images or Cardiac under Chart Review for US/ ECHO/ MRI reports. Social History Tobacco Use Types Packs/Day Years Used Date Smoking Tobacco: Never Assessed Tobacco Cessation:Counseling Given: Not Answered Comments No Sex and Gender Information Value Date Recorded Sex Assigned at Not on file Legal Sex Female 7:30 AM CDT Gender Identity Not on file Sexual Orientation Not on file Plan of Treatment Health Maintenance Due Date Last Done Comments PAP SMEAR 1998 HPV VACCINE (1 - 3-dose series) 2013 HEPATITIS C SCREENING 12/09/2016 DTAP/TDAP/TD VACCINES (1 - Tdap) 2017 HEPATITIS B VACCINE (1 of 3 - 19+ 3-dose series) 2017 CHLAMYDIA/GONORRHEA SCREENING 04/04/2023 04/04/2022 COVID-19 VACCINE (3 - 2023-2 5 season) 2023 10/06/2020, 09/08/2020 DEPRESSION SCREENING 04/22/2024 INFLUENZA VACCINE (Season Ended) 2024 03/03/2020 ZOSTER VACCINE (1 of 2) 2048 HIV SCREENING Completed 02/09/2022, 10/20/2021 HIB VACCINE Aged Out No longer eligi ble based on patient's age to complete this topic MENINGOCOCCAL (Group B) VACCINE SHARED DECISION-MAKING Aged Out No longer eligible based on patient's age to complete this topic MENINGOCOCCAL GROUPS A/C/Y/W VACCINE Aged Out No longer eligible b ased on patient's age to complete this topic PNEUMOCOCCAL VACCINE Aged Out No long er eligible based on patient's age to complete this topic Insurance Z[employer]
[2024-08-07 14:59] LABS: Chlamydia trachomatis NOT DETECTED (NOT DETECTE); Neisseria gonorrhoeae PCR NOT DETECTED (NOT DETECTE)
== END 2024-08-07 09:53 | disposition home or self-care (01) ==
LOC: ANHGOSHLAB 09:52
PROVIDERS: PCP Family Medicine; Visit Provider Family Medicine
DX: N89.8 Other specified noninflammatory disorders of vagina (principal)
CPT/HCPCS: 81513; 87491; 87591